=== PATIENT | female | born 1975 | race Caucasian/White ===

== ENCOUNTER 2017-02-10 11:14 | Outpatient (CLI) | payer SELFPAY ==
--- NOTE | 2017-02-10 12:06 | Non Stress Test Report ---
Non Stress Test Datetime Report Generated by CPN: 02/10/2017 12:06 DEMOGRAPHIC EGA NST: 36.3 INDICATION Indication for Study: Ordered by Provider Indication for Study (NST) Other: AMA VITAL SIGNS Temperature - NST: 97.9 Pulse - NST: 102 RESP - NST: 18 NBPSYS NST: 102 NBPDIA NST: 58 MONITORING Monitor Explained: Monitor Explained; Test Explained; Patient Verbalized Understanding Time on Monitor: 02/10/2017 11:31 Time off Monitor: 02/10/2017 11:56 NST Duration: 25 NST INTERVENTIONS NST Interventions: PO Hydration; Reposition Patient; Oxytocin Challenge Test Physician Notified NST: Adrian, P BABY A: [id number] BABY A Movement : Present Contraction Frequency : denies FHR Baseline : 135 Accelerations : 15X15 Decelerations : None Variability : Moderate 6-25bpm NST Review: Meets Criteria for Reactive NST NST Review and Verified By : Adela Clinton RNC NST Results: Reactive NST REPORT Report Trigger: Send Report
== END 2017-02-10 11:56 | disposition home or self-care (01) ==
LOC: LC 11:14
PROVIDERS: ATTEND Obstetrics & Gynecology
PROC: 4A1HXCZ Monitoring of Products of Conception, Cardiac Rate, External Approach (ICD-10-PCS; principal; 2017-02-10)
DX: O09.523 Supervision of elderly multigravida, third trimester (principal); Z3A.37 37 weeks gestation of pregnancy
CPT/HCPCS: 59025

== ENCOUNTER 2017-02-13 16:09 | Outpatient (CLI) | payer MEDICAID ==
--- NOTE | 2017-02-13 17:00 | Non Stress Test Report ---
Non Stress Test Datetime Report Generated by CPN: 02/13/2017 17:00 DEMOGRAPHIC EGA NST: 36.6 INDICATION Indication for Study: Polyhydramnios (Annotations: Data stored by CPN on behalf of user) Indication for Study: Ordered by Provider Indication for Study (NST) Other: Repeat NST MONITORING Monitor Explained: Monitor Explained; Test Explained; Patient Verbalized Understanding Time on Monitor: 02/13/2017 16:28 Time off Monitor: 02/13/2017 16:58 NST Duration: 30 NST INTERVENTIONS NST Interventions: PO Hydration Physician Notified NST: H. Butch CNM BABY A Movement : Present Contraction Frequency : Irregular FHR Baseline : 140 Accelerations : 15X15 Decelerations : None Variability : Moderate 6-25bpm NST Review: Meets Criteria for Reactive NST NST Review and Verified By : V Monk RN NST Results: Reactive NST REPORT Report Trigger: Send Report
== END 2017-02-13 17:03 | disposition home or self-care (01) ==
LOC: LC 16:09
PROVIDERS: ATTEND Obstetrics & Gynecology
PROC: 4A1HXCZ Monitoring of Products of Conception, Cardiac Rate, External Approach (ICD-10-PCS; principal; 2017-02-13)
DX: O40.3XX0 Polyhydramnios, third trimester, not applicable or unspecified (principal); O09.523 Supervision of elderly multigravida, third trimester; Z3A.36 36 weeks gestation of pregnancy
CPT/HCPCS: 59025

== ENCOUNTER 2018-02-23 22:34 | Emergency (ER) | payer MEDICAID ==
--- NOTE | 2018-02-23 23:22 | ER Document Report ---
ED GI/ - General Chief Complaint: Abdominal Pain Stated Complaint: KIDNEY INFECTION Time Seen by Provider: 02/23/18 23:18 Mode of Arrival: Ambulatory Information source: Patient TRAVEL OUTSIDE OF THE [place] IN LAST 30 DAYS: No - HPI Patient complains to provider of: Abdominal pain, Flank pain, Hematuria, Onset: Last week Timing/Duration: Gradual Quality of pain: Achy Associated symptoms: Dysuria, Nausea Exacerbated by: Denies Relieved by: Denies Similar symptoms previously: No Recently seen / treated by doctor: No Notes: 02/23/18 23:20 Patient is a 42-year-old female who is , presenting to the emergency room today complaining of flank pain with hematuria and chills, she reports that she had a positive test back in October after missing a menstrual cycle, however a few weeks after that developed heavy vaginal bleeding with cramping and passage of large clots and believed that she possibly had a miscarriage, she reports abdominal bloating, swelling in her hands and nausea at times 02/24/18 02:15 - Related Data Allergies/Adverse Reactions: bupropion [From Wellbutrin] Allergy (Verified 02/16/17 03:05) Past Medical History - General Information source: Patient - Social History Smoking Status: Current Every Day Smoker Family History: Reviewed & Not Pertinent - Past Medical History Cardiac Medical History: Denies: Hx Coronary Artery Disease Pulmonary Medical History: Reports: Hx Asthma, Hx COPD Neurological Medical History: Reports: Hx Seizures GI Medical History: Reports: Hx Hepatitis - Hepatitis C Infectious Medical History: Reports: Hx Hepatitis - Hepatitis C Review of Systems - Review of Systems Constitutional: No symptoms reported EENT: No symptoms reported Cardiovascular: No symptoms reported Respiratory: No symptoms reported Gastrointestinal: See HPI Genitourinary: See HPI Female Genitourinary: See HPI Musculoskeletal: No symptoms reported Skin: No symptoms reported Hematologic/Lymphatic: No symptoms reported Neurological/Psychological: No symptoms reported -: Yes All other systems reviewed and negative Physical Exam - Vital signs Vitals: Temp Pulse Resp BP Pulse Ox 98.0 F 105 H 16 110/50 L 100 02/24/18 00:31 02/24/18 00:31 02/24/18 00:31 02/24/18 00:31 02/24/18 00:31 Interpretation: Normal - General General appearance: Appears well, Alert - HEENT Head: Normocephalic, Atraumatic Eyes: Normal Pupils: PERRL - Respiratory Respiratory status: No respiratory distress Chest status: Nontender Breath sounds: Normal Chest palpation: Normal - Cardiovascular Rhythm: Regular Heart sounds: Normal auscultation Murmur: No - Abdominal Inspection: Gravid female Distension: No distension Bowel sounds: Normal Tenderness: Nontender Organomegaly: No organomegaly - Back Back: Normal, Nontender - Extremities General upper extremity: Normal inspection, Nontender, Normal color, Normal ROM , Normal temperature General lower extremity: Normal inspection, Nontender, Normal color, Normal ROM , Normal temperature, Normal weight bearing. No: Moises's sign - Neurological Neuro grossly intact: Yes Cognition: Normal Orientation: AAOx4 Tammie Coma Scale Eye Opening: Spontaneous [place] Coma Scale Verbal: Oriented [place] Coma Scale Motor: Obeys Commands Tammie Coma Scale Total: 15 Speech: Normal Motor strength normal: LUE, RUE, LLE, RLE Sensory: Normal - Psychological Associated symptoms: Normal affect, Normal mood - Skin Skin Temperature: Warm Skin Moisture: Dry Skin Color: Normal Course - Re-evaluation Re-evalutation: 02/23/18 23:21 Bedside ultrasound in triage area confirms positive IUP with heart rate and motion 02/24/18 05:58 Lab and imaging findings discussed with patient at bedside which is consistent with a positive IUP measuring 18 weeks and 1 day, with good heart rate, she also has evidence of urinary tract infection, patient was started on antibiotics and advised to follow-up with MANAGER STYLE - Vital Signs Vital signs: Temp Pulse Resp BP Pulse Ox 98.0 F 105 H 16 110/50 L 100 02/24/18 00:31 02/24/18 00:31 02/24/18 00:31 02/24/18 00:31 02/24/18 00:31 - Laboratory Result Diagrams: 02/23/18 23:47 02/23/18 23:47 Laboratory results interpreted by me: 02/23/18 02/23/18 02/23/18 23:33 23:33 23:47 WBC 14.5 H RBC 3.18 L Hgb 9.0 L Hct 26.6 L RDW 15.2 H Plt Count 147 L Seg Neutrophils % 87.0 H Lymphocytes % 5.2 L Absolute Neutrophils 12.7 H Chloride Carbon Dioxide Alkaline Phosphatase Total Protein Albumin Beta HCG, Quant Urine Protein 100 H Urine Blood MODERATE H Urine Nitrite POSITIVE H Urine Urobilinogen 4.0 H Ur Leukocyte Esterase SMALL H Protein/Creatinin Ratio 0.7 H Urine Total Protein 67.2 H 02/23/18 23:47 WBC RBC Hgb Hct RDW Plt Count Seg Neutrophils % Lymphocytes % Absolute Neutrophils Chloride 109 H Carbon Dioxide 20 L Alkaline Phosphatase 128 H Total Protein 5.7 L Albumin 2.9 L Beta HCG, Quant 5923.10 H Urine Protein Urine Blood Urine Nitrite Urine Urobilinogen Ur Leukocyte Esterase Protein/Creatinin Ratio Urine Total Protein - Diagnostic Test Radiology reviewed: Image reviewed, Reports reviewed Discharge - Discharge Clinical Impression: Urinary tract infection Qualifiers: Urinary tract infection type: site unspecified Hematuria presence: without hematuria Qualified Code(s): N39.0 - Urinary tract infection, site not specified Condition: Stable Disposition: HOME, SELF-CARE Instructions: Nitrofurantoin ([facility]), ([facility]), Urinary Tract Infection ( [facility]) Additional Instructions: Follow up with your primary care provider and MANAGER STYLE in one to 2 days. Return to the emergency room immediately if symptoms worsen or any additional concerns. Prescriptions: Nitrofurantoin/Nitrofuran Mac [Macrobid 100 mg Capsule] 100 mg PO BID #20 capsule Forms: Smoking Cessation Education Referrals: LUCY CASTILLO MD [ACTIVE STAFF] - Follow up as needed
[2018-02-24 00:09] LABS: ABSOLUTE EOSINOPHILS # (AUTO) 0.1 10^3/uL (0.0-0.6); ABSOLUTE LYMPHOCYTES (AUTO) 0.8 10^3/uL (0.5-4.7); ABSOLUTE NEUT (AUTO) 12.7 10^3/uL (1.7-8.2); BASOPHILS % (AUTO) 0.3 % (0-2); EOSINOPHILS % (AUTO) 0.7 % (0-6); HEMATOCRIT 26.6 % (36.0-47.0); LYMPHOCYTES % (AUTO) 5.2 % (13-45); MEAN CORPUSCULAR HEMOGLOBIN 28.4 pg (27.0-33.4); MEAN CORPUSCULAR HGB CONC 33.9 g/dL (32.0-36.0); MEAN CORPUSCULAR VOLUME 84 fl (80-97); MONOCYTES % (AUTO) 6.8 % (3-13); PLATELET COUNT 147 10^3/uL (150-450); RED BLOOD COUNT 3.18 10^6/uL (3.72-5.28); RED CELL DISTRIBUTION WIDTH 15.2 % (11.5-14.0); TOTAL CELLS COUNTED % (AUTO) 100 %; WHITE BLOOD COUNT 14.5 10^3/uL (4.0-10.5)
[2018-02-24 00:35] LABS: APPEARANCE,URINE CLEAR; BILIRUBIN,URINE NEGATIVE (NEGATIVE); COLOR,URINE YELLOW; GLUCOSE, URINE NEGATIVE (NEGATIVE); KETONES,URINE NEGATIVE (NEGATIVE); LEUKOCYTE ESTERASE,URINE SMALL (NEGATIVE); NITRITE,URINE POSITIVE (NEGATIVE); PROTEIN,URINE 100 mg/dL (NEGATIVE); URINE SPECIFIC GRAVITY 1.018
[2018-02-24 00:57] LABS: ALANINE AMINOTRANSFERASE 31 U/L (9-52); ALBUMIN 2.9 g/dL (3.5-5.0); ALKALINE PHOSPHATASE 128 U/L (38-126); ANION GAP 9 (5-19); ASPARTATE AMINO TRANSFERASE 19 U/L (14-36); BILIRUBIN,DIRECT 0.3 mg/dL (0.0-0.4); BILIRUBIN,TOTAL 0.5 mg/dL (0.2-1.3); BLOOD UREA NITROGEN 16 mg/dL (7-20); CALCIUM 8.8 mg/dL (8.4-10.2); CARBON DIOXIDE 20 mmol/L (22-30); CHLORIDE 109 mmol/L (98-107); GLUCOSE 80 mg/dL (75-110); POTASSIUM 4.2 mmol/L (3.6-5.0); SODIUM 137.6 mmol/L (137-145); TOTAL PROTEIN 5.7 g/dL (6.3-8.2); URIC ACID 4.9 mg/dL (2.5-7.0)
[2018-02-24 01:10] LABS: UR PRO/CREAT RATIO RESULT 0.7 mg/mg (0.0-0.2); URINE CREATININE 95.8 mg/dL (15-278); URINE PROTEIN 67.2 mg/dL (<12)
[2018-02-24 01:38] VITALS: BP 110/50
[2018-02-24] MEDS ORDERED: HYDROCODONE/ACETAMINOPHEN 5-325 MG TABLET PO ONE (01:58)
[2018-02-24] MEDS ORDERED: NITROFURANTOIN MONOHYD/M-CRYST 100 MG CAPSULE PO ONE (01:58)
--- NOTE | 2018-02-24 02:44 | RADIOLOGY REPORT (SQ) ---
EXAM DESCRIPTION: US FOLLOW UP COMPLETED DATE/TME: 02/23/2018 23:19 CLINICAL HISTORY: 42 years, Female, /CRAMPING LMP not provided. COMPARISON: None. TECHNIQUE: Complete second trimester obstetrical ultrasound. FINDINGS: Cervical length: 5.9 cm. measurements: BPD: 4.01 cm compatible with an estimated gestational age of 18 weeks, 1 day. HC: 14.83 cm compatible with an estimated gestational age of 18 weeks, 0 day. AC: 13.96 cm compatible with an estimated gestational age of 19 weeks, 2 day. FL: 2.36 cm compatible with an estimated gestational age of 17 weeks, 1 day. Composite estimated gestational age of 18 weeks, 1 day. Estimated delivery date of 07/27/2018. Estimated weight of 231 g. heart rate of 168 bpm. Placenta: Posterior with marginal previa. presentation: Variable LVP: 5.0 cm. organ survey: Four-chamber heart: Visualized Three-vessel Cord: Visualized Cord insertion: No abnormality identified. Kidneys: Not well visualized. Bladder: No abnormality identified. Stomach: No abnormality defined. Spine: No abnormality identified. Cine loop of the cervical spine was not performed. The entire spine is not definitely visualized. Lateral ventricles: No abnormality identified. Cerebellum: No abnormality identified. Cisterna magna: No abnormalities identified. Upper extremity: No abnormality identified. Lower extremity: No abnormality identified. IMPRESSION: 1. Single live intrauterine with estimated gestational age of 18 weeks, 1 days. heart rate of 168 bpm. 2. Posterior placenta with marginal previa. Continued follow-up recommended. 3. No definite abnormalities noted on organ survey. The kidneys and spine are not well visualized. Continued follow-up recommended. 2010 [employer]- All Rights Reserved
[2018-02-24] MEDS ORDERED: HYDROCODONE/ACETAMINOPHEN 5-325 MG (6 TAB/ER DISP) PO PRN (02:56)
== END 2018-02-24 03:08 | disposition home or self-care (01) ==
LOC: ER 22:34
DX: O23.42 Unspecified infection of urinary tract in pregnancy, second trimester (principal); O26.892 Other specified pregnancy related conditions, second trimester; R31.9 Hematuria, unspecified; R10.9 Unspecified abdominal pain; R68.83 Chills (without fever); R11.0 Nausea; O99.332 Smoking (tobacco) complicating pregnancy, second trimester; O99.512 Diseases of the respiratory system complicating pregnancy, second trimester; J44.9 Chronic obstructive pulmonary disease, unspecified; Z3A.18 18 weeks gestation of pregnancy; Z88.8 Allergy status to other drugs, medicaments and biological substances
CPT/HCPCS: 99284; 86900; 86901; 36415; 86850; 84702; 84156; 84550; 82570; 85025; 80053; 81001; 76805; J2790; J3490; J8499

== ENCOUNTER 2018-04-13 17:44 | Outpatient (CLI) | payer MEDICAID, OTHER ==
[2018-04-13 17:59] VITALS: BP 102/60
[2018-04-13 19:09] LABS: T.VAGINALIS (WET MOUNT) NO TRICHOMONAS SEEN
[2018-04-13 19:10] LABS: BACTERIA (WET MOUNT) 4+ BACTERIA SEEN; EPITHELIALS (WET MOUNT) 3+ EPITHELIALS SEEN; RBCS (WET MOUNT) RARE RBCS SEEN; WBCS (WET MOUNT) 4+ WBCS SEEN; YEAST (WET MOUNT) YEAST SEEN
[2018-04-13] MEDS ORDERED: FLUCONAZOLE 100 MG TABLET PO ONE (20:00)
[2018-04-13 20:35] LABS: CHLAM PCR NOT DETECTED (NOT DETECT); GON PCR DETECTED (NOT DETECT)
[2018-04-13] MEDS ORDERED: CEFTRIAXONE INJ 1000 MG VIAL ONE (20:55)
[2018-04-13] MEDS ORDERED: AZITHROMYCIN 250 MG TABLET ONE (20:55)
[2018-04-13] MEDS ORDERED: LIDOCAINE 1% INJ-PF (10 MG/ML) 30 ML SDV ONE (20:56)
[2018-04-13] MEDS ORDERED: ONDANSETRON 4 MG TAB.RAPDIS ONE (20:56)
[2018-04-13] MEDS ORDERED: LIDOCAINE 1% INJ-PF (10 MG/ML) 30 ML SDV INJ ONE (20:58)
[2018-04-13] MEDS ORDERED: AZITHROMYCIN 250 MG TABLET PO ONE (20:58)
[2018-04-13] MEDS ORDERED: ONDANSETRON 4 MG TAB.RAPDIS PO ONE (20:58)
[2018-04-13] MEDS ORDERED: CEFTRIAXONE INJ 250 MG VIAL IM ONE (20:58)
== END 2018-04-13 21:54 | disposition home or self-care (01) ==
LOC: EDSTATUS 18:15 → LC 18:16
PROVIDERS: ATTEND Obstetrics & Gynecology
PROC: 4A1HXCZ Monitoring of Products of Conception, Cardiac Rate, External Approach (ICD-10-PCS; principal; 2018-04-13)
DX: O09.522 Supervision of elderly multigravida, second trimester (principal); O09.32 Supervision of pregnancy with insufficient antenatal care, second trimester; O99.332 Smoking (tobacco) complicating pregnancy, second trimester; F17.210 Nicotine dependence, cigarettes, uncomplicated; O98.212 Gonorrhea complicating pregnancy, second trimester; Z3A.25 25 weeks gestation of pregnancy
CPT/HCPCS: 59899; 87210; 87491; 87591; Q0114; S0119; J3490; J0696

== ENCOUNTER 2018-04-21 08:37 | Inpatient (IN) | payer MEDICAID ==
--- NOTE | 2018-04-21 08:55 | ER Document Report ---
ED GI/ - General Stated Complaint: PREMATURE DELIVERY Time Seen by Provider: 04/21/18 08:48 Mode of Arrival: Medic Information source: Patient TRAVEL OUTSIDE OF THE [place] IN LAST 30 DAYS: No - HPI Patient complains to provider of: Other - This is a woman who is 42 years old G 14 P8 that presents for evaluation of a spontaneous vaginal delivery of a stillborn 25-week . She noted that she began to have some cramping last night this morning had the sensation of a gush went to the bathroom saw that the foot was presenting from her vagina at which time she began to pass large volume of blood, fire department was then called subsequently delivered the baby which did not demonstrate any signs of life, they clamped the baby's umbilical cord in place, the placenta was not delivered thereafter. Subsequent she was transported the emergency room. She denies any history of vaginal bleeding problems, any bleeding problems, had previously been diagnosed with gonorrhea approximately 1 week prior and had been receiving treatment therefore. - Related Data Allergies/Adverse Reactions: bupropion [From Wellbutrin] Allergy (Verified 04/13/18 17:45) Past Medical History - General Information source: Patient, Emergency Med Personnel - Social History Smoking Status: Current Every Day Smoker Smoking Education Provided: Yes Family History: Reviewed & Not Pertinent - Past Medical History Cardiac Medical History: Denies: Hx Coronary Artery Disease Pulmonary Medical History: Reports: Hx Asthma, Hx COPD Neurological Medical History: Reports: Hx Seizures Renal/ Medical History: Denies: Hx Peritoneal Dialysis GI Medical History: Reports: Hx Hepatitis - Hepatitis C Infectious Medical History: Reports: Hx Hepatitis - Hepatitis C Review of Systems - Review of Systems -: Yes All other systems reviewed and negative Physical Exam - Vital signs Vitals: Temp Pulse BP Pulse Ox 98.4 F 106 H 124/64 100 04/21/18 08:53 04/21/18 08:53 04/21/18 08:53 04/21/18 08:53 - General General appearance: Appears well, Alert, Anxious In distress: None - HEENT Head: Normocephalic, Atraumatic Eyes: Normal Pupils: PERRL - Respiratory Respiratory status: No respiratory distress Chest status: Nontender Breath sounds: Normal Chest palpation: Normal - Cardiovascular Rhythm: Regular Heart sounds: Normal auscultation Murmur: No - Abdominal Inspection: Other - Obese abdomen, firm fundus of the uterus - Genitourinary External exam: Other - There is a clamped umbilical cord approximately 30 cm in the length, tethered what appears to be intrauterine. Vaginal bleeding: Mild - Back Back: Normal, Nontender - Extremities General upper extremity: Normal inspection, Nontender, Normal color, Normal ROM , Normal temperature General lower extremity: Normal inspection, Nontender, Normal color, Normal ROM , Normal temperature, Normal weight bearing. No: Moises's sign - Neurological Neuro grossly intact: Yes Cognition: Normal Orientation: AAOx4 [place] Coma Scale Eye Opening: Spontaneous [place] Coma Scale Verbal: Oriented Tammie Coma Scale Motor: Obeys Commands [place] Coma Scale Total: 15 Speech: Normal Motor strength normal: LUE, RUE, LLE, RLE Sensory: Normal - Psychological Associated symptoms: Normal affect, Normal mood Course - Re-evaluation Re-evalutation: 04/21/18 09:02 42-year-old female who presents after a stillbirth. She is 25 weeks . She has a placenta which is still in place with a clamp umbilical cord. Applied gentle fundal massage. Gentle inferior traction on umbilical cord. Patient's placenta failed to be delivered. It is approximately 1 hour status post her delivery. Have contacted on-call supply planner Dr. Zarate who agrees to see patient on labor and delivery. We will plan for monitoring and admission to labor and delivery for further management. We will defer any further manipulation of the placenta and umbilical cord. - Vital Signs Vital signs: Temp Pulse Resp BP Pulse Ox 98.4 F 106 H 124/64 100 04/21/18 08:53 04/21/18 08:53 04/21/18 08:53 04/21/18 08:53 Discharge - Discharge Clinical Impression: Advanced maternal age (AMA), 40 years or greater, Miscarriage, Condition: Stable Disposition: ADMITTED INPATIENT Admitting Provider: [facility] Unit Admitted: Labor and Delivery Referrals: MAYRA STATON MD [Primary Care Provider] - Follow up as needed
[2018-04-21] MEDS ORDERED: MISOPROSTOL 0.2 MG TABLET PR ONE (08:56)
[2018-04-21] MEDS ORDERED: RINGERS SOLUTION,LACTATED 1,000 ML IV PRN (08:57)
[2018-04-21] MEDS ORDERED: RINGERS SOLUTION,LACTATED 1,000 ML IV ONE (08:57)
[2018-04-21 09:23] LABS: ABSOLUTE EOSINOPHILS # (AUTO) 0.1 10^3/uL (0.0-0.6); ABSOLUTE LYMPHOCYTES (AUTO) 1.6 10^3/uL (0.5-4.7); ABSOLUTE MONOCYTES (AUTO) 0.7 10^3/uL (0.1-1.4); BASOPHILS % (AUTO) 0.2 % (0-2); EOSINOPHILS % (AUTO) 0.5 % (0-6); HEMATOCRIT 28.4 % (36.0-47.0); HEMOGLOBIN 9.9 g/dL (12.0-15.5); LYMPHOCYTES % (AUTO) 11.8 % (13-45); MEAN CORPUSCULAR HEMOGLOBIN 29.7 pg (27.0-33.4); MEAN CORPUSCULAR HGB CONC 34.9 g/dL (32.0-36.0); MEAN CORPUSCULAR VOLUME 85 fl (80-97); MONOCYTES % (AUTO) 5.4 % (3-13); PLATELET COUNT 196 10^3/uL (150-450); RED BLOOD COUNT 3.34 10^6/uL (3.72-5.28); RED CELL DISTRIBUTION WIDTH 14.8 % (11.5-14.0); SEGMENTED NEUTROPHILS % (AUTO) 82.1 % (42-78); TOTAL CELLS COUNTED % (AUTO) 100 %; WHITE BLOOD COUNT 13.4 10^3/uL (4.0-10.5)
[2018-04-21] MEDS ORDERED: MISOPROSTOL 0.2 MG TABLET ONE (09:51)
[2018-04-21] MEDS ORDERED: OXYTOCIN/NORMAL SALINE 20 UNIT/1,000 ML RTUINJ ONE (09:51)
[2018-04-21 11:08] LABS: URINE BARBITURATES SCREEN NEGATIVE; URINE BENZODIAZEPINES SCREEN NEGATIVE; URINE COCAINE SCREEN NEGATIVE; URINE MARIJUANA (THC) SCREEN NEGATIVE; URINE METHADONE SCREEN NEGATIVE; URINE PHENCYCLIDINE SCREEN NEGATIVE
[2018-04-21] MEDS ORDERED: FENTANYL CITRATE INJ/PF 100 MCG/2 ML AMPUL ONE (11:13)
[2018-04-21 11:18] LABS: URINE AMPHETAMINES SCREEN UNCONFIRMED POSITIVE
[2018-04-21] MEDS ORDERED: BENZOCAINE/MENTHOL AEROSOL SPRAY 56 ML TOP PRN (11:29)
[2018-04-21] MEDS ORDERED: DIBUCAINE 1% OINTMENT 28 GM TP PRN (11:29)
[2018-04-21] MEDS ORDERED: ZOLPIDEM TARTRATE 5 MG TABLET PO PRN (11:29)
[2018-04-21] MEDS ORDERED: PROMETHAZINE HCL INJ 25 MG/1 ML VIAL IV PRN (11:29)
[2018-04-21] MEDS ORDERED: OXYTOCIN/NORMAL SALINE 20 UNIT/1,000 ML RTUINJ IV PRN (11:29)
[2018-04-21] MEDS ORDERED: GLYCERIN/WITCH HAZEL LEAF 1 EACH MED..PAD TP PRN (11:29)
[2018-04-21] MEDS ORDERED: PROMETHAZINE HCL 25 MG SUPP.RECT PR PRN (11:29)
[2018-04-21] MEDS ORDERED: DIPHENHYDRAMINE HCL 25 MG CAPSULE PO PRN (11:29)
[2018-04-21] MEDS ORDERED: MEASLES,MUMPS&RUBELLA VACC/PF 0.5 ML VIAL SUBCUT PRN (11:29)
[2018-04-21] MEDS ORDERED: ACETAMINOPHEN 650 MG SUPP.RECT PR PRN (11:29)
[2018-04-21] MEDS ORDERED: MAGNESIUM HYDROXIDE SUSP 30 ML UDCUP PO PRN (11:29)
[2018-04-21] MEDS ORDERED: PROMETHAZINE HCL 25 MG TABLET PO PRN (11:29)
[2018-04-21] MEDS ORDERED: DIPH/PERTUSS(ACELL)/TETANUS VAC/PF 0.5 ML SYR (>=10YO) IM PRN (11:29)
[2018-04-21] MEDS ORDERED: ACETAMINOPHEN WITH CODEINE #3 TABLET PO PRN ×2 (11:29)
[2018-04-21] MEDS ORDERED: NA PHOS,M-B/NA PHOS,DI-BA (ADULT) 133 ML ENEMA PR PRN (11:29)
[2018-04-21] MEDS ORDERED: FENTANYL CITRATE INJ/PF 100 MCG/2 ML AMPUL IV ONE (12:15)
[2018-04-21] MEDS ORDERED: CEFAZOLIN 2 GM/D5W RTU 2 GM/50 ML RTUPB IV ONE (12:30)
[2018-04-21] MEDS: CEFAZOLIN 2 GM/D5W RTU 2 GM/50 ML RTUPB IV SCH ×2 (12:30→18:09)
[2018-04-21 13:37] LABS: RUBELLA INTERPRETATION POSITIVE
--- NOTE | 2018-04-21 14:34 | Admission Physical ---
Datetime Report Generated by CPN: 04/21/2018 14:34 CURRENT ADMISSION Chief Complaint: Other Chief Complaint Other: Brought in by EMS for delivery of infant at hotel Indication for Induction: Not Applicable Admit Impression : Observation/Evaluation; Obstetrical Complication Admit Plan: Admit to Unit ALLERGIES Medication Allergies: Yes Medication Allergies: bupropion (04/21/2018) Latex: No Latex Allergies OBSTETRICAL HISTORY EDC: 07/27/2018 00:00 : 14 Para: 8 Ectopic: 0 Livin Cesareans: 0 VBACs: 0 Multiple Births: 0 Gestational Diabetes: No Rh Sensitization: No DANIEL: No Infertility: No ART Treatment: No Uterine Anomaly: No IUGR: No Hx Previous C/S: No Macrosomia: No Hx Loss/Stillborn: Yes PIH: No Hx : No Placenta Previa/Abruption: No Depression/PP Depression: Yes PTL/PROM: Yes Post Hemorrhage: Yes Current Procedures: Ultrasound; NST SEE RECORDS Alcohol: No Marijuana : No Cocaine: No Other Illicit Drugs: No Cigarettes: Current Everyday Smoker. [id number] MEDICAL HISTORY Diabetes: No Blood Transfusion: Yes Pulmonary Disease (Asthma, TB): Yes Breast Disease: No Hypertension: No Account Manager Education Surgery: No Heart Disease: No Hosp/Surgery: Yes Autoimmune Disorder: No Anesthetic Complications: No Kidney Disease: No Abnormal Pap Smear: No Neuro/Epilepsy: Yes Psychiatric Disorders: No Other Medical Diseases: No Hepatitis/Liver Disease: No Significant Family History: No Varicosities/Phlebitis: No Trauma/Violence : No Thyroid Dysfunction: No Medical History Comments: COPD, epilepsy, arthritis- no meds INFECTIOUS HISTORY Gonorrhea: Yes Genital Herpes: No Chlamydia: No Tuberculosis: No Syphilis: No Hepatitis: Yes HIV/AIDS Exposure: No Rash or Viral Illness: No HPV: No Infectious History Comments: Hep C + PHYSICAL EXAM General: Normal HEENT: Normal Neurologic: Normal Thyroid: Deferred Heart: Normal Lungs: Normal Breast: Deferred Back: Normal Abdomen: Normal Genitourinary Exam: Normal Extremities: Normal DTRs: Normal Pelvic Type: Adequate Vital Signs: Reviewed FETUS A EGA: 26.1 Admit Comment: 42yo now at 26+1ega presents after delivery of at [facility] by EMS. Reportedly she noted cramping (she thought were darryl-junior) this am then noted feet from her vagina. EMS was called and Fire and EMS delivered apparent footling breech delivery. Per report no signs of life at but unknown length of entrapment. Upon arrival to the ER the cord was clamped but not easily delivered and patient was brought to Labor and delivery. 1000mcg cytotec placed per rectum. UDS obtained via straight catheter. After approximately 1 hour post cytotec placement the placenta was easily delivered - was noted to be thick and not truly consistent with reported 26wks ega per US at 18wks with LILIYA of 07/27/2018. Pt does not desire autopsy. Placenta sent for pathology and cultures obtained of placenta. Treated for Gonorrhea last week. crudee noted no e/o ratianed placenta and placenta appeared intact at delivery. Ancef for 24 hours and will monitor bleeding. T_C. If needed will perform a D_C but bleeding is stable now. PLANS FOR LABOR AND DELIVERY Labor and Delivery: None Pain Management: None INFORMED CONSENT Informed Consent Obtained: Risks, Benefits and Alternatives Discussed Signature: with User ID: [email or web address]
[2018-04-21] MEDS ORDERED: IBUPROFEN 800 MG TABLET ONE (14:45)
[2018-04-21] MEDS: IBUPROFEN 800 MG TABLET PO SCH ×2 (14:46→21:53)
[2018-04-21 14:48] LABS: CHLAM PCR NOT DETECTED (NOT DETECT); GON PCR DETECTED (NOT DETECT)
[2018-04-21] MEDS ORDERED: AZITHROMYCIN 1 GM SUSP PACKET PO ONE (14:58)
[2018-04-21] MEDS ORDERED: AZITHROMYCIN 250 MG TABLET ONE (15:06)
[2018-04-21] MEDS ORDERED: CEFTRIAXONE INJ 1000 MG VIAL IV ONE ×2 (15:15→17:00)
[2018-04-21] MEDS ORDERED: CEFTRIAXONE INJ 1000 MG VIAL ONE (17:18)
[2018-04-21] MEDS: FERROUS SULFATE 325 MG TABLET PO SCH (18:08)
[2018-04-21] MEDS ORDERED: CEFTRIAXONE SODIUM 500 MG in NORMAL SALINE 25 ML IV ONE (18:30)
[2018-04-21] MEDS ORDERED: CEFTRIAXONE SODIUM 500 MG in DEXTROSE 5%-WATER 50 ML IV ONE (18:30)
[2018-04-21] MEDS: DOCUSATE SODIUM 100 MG CAPSULE PO SCH (18:46)
[2018-04-21] MEDS: PSEUDOEPHEDRINE HCL 30 MG TABLET PO PRN (20:15)
[2018-04-21] MEDS: FAMOTIDINE 20 MG TABLET PO SCH (21:52)
[2018-04-22] MEDS: CEFAZOLIN 2 GM/D5W RTU 2 GM/50 ML RTUPB IV SCH ×3 (00:33→12:40)
[2018-04-22] MEDS: PSEUDOEPHEDRINE HCL 30 MG TABLET PO PRN (03:09)
[2018-04-22] MEDS: IBUPROFEN 800 MG TABLET PO SCH ×2 (05:48→14:32)
[2018-04-22 07:57] LABS: HEMATOCRIT 24.2 % (36.0-47.0); HEMOGLOBIN 8.4 g/dL (12.0-15.5); MEAN CORPUSCULAR HEMOGLOBIN 29.9 pg (27.0-33.4); MEAN CORPUSCULAR HGB CONC 34.9 g/dL (32.0-36.0); MEAN CORPUSCULAR VOLUME 86 fl (80-97); PLATELET COUNT 227 10^3/uL (150-450); RED BLOOD COUNT 2.82 10^6/uL (3.72-5.28); WHITE BLOOD COUNT 6.6 10^3/uL (4.0-10.5)
[2018-04-22] MEDS: FERROUS SULFATE 325 MG TABLET PO SCH (09:07)
[2018-04-22] MEDS ORDERED: SENNOSIDES/DOCUSATE 8.6-50 MG 1 EACH TABLET PO SCH (10:00)
[2018-04-22] MEDS ORDERED: PRENATAL VITAMIN W DHA CAPSULE PO SCH (10:00)
[2018-04-22] MEDS: DOCUSATE SODIUM 100 MG CAPSULE PO SCH (10:30)
[2018-04-22] MEDS: FAMOTIDINE 20 MG TABLET PO SCH (10:30)
--- NOTE | 2018-04-22 11:32 | PDOC PROGRESS REPORT ---
Subjective-OB Progress Note for:: 04/22/18 Subjective: Pt doing well now, denies heavy bleeding. Voiding without difficulty. No concerns. Does not desire another , she is undecided on BTL. Seems emotionally stable, reports this was an unplanned and that she had considered termination or adoption, but then this happened. She is ready and wants to go home today. Physical Exam (OB) Vital Signs: Temp Pulse Resp BP Pulse Ox 98.2 F 81 16 98/47 L 96 04/22/18 08:22 04/22/18 08:22 04/22/18 08:22 04/22/18 08:22 04/22/18 08:22 Intake & Output 04/21/18 04/22/18 04/23/18 06:59 06:59 06:59 Intake Total 535 Balance 535 - Lochia Lochia Amount: Small 10-25 ml Lochia Color: Rubra/Red - Abdomen Description: Tender, Soft, Round Hernia Present: No Fundal Description: Firm, Midline Fundal Height: u/u - u/2 Objective-Diagnostic Laboratory: 04/22/18 07:35 04/22/18 04/22/18 07:35 07:35 WBC 6.6 RBC 2.82 L Hgb 8.4 L Hct 24.2 L MCV 86 MCH 29.9 MCHC 34.9 RDW 15.0 H Plt Count 227 Blood Type O NEGATIVE Assessment and Plan(PN) - Assessment and Plan (1) Advanced maternal age (AMA), 40 years or greater Is this a current diagnosis for this admission?: Yes (2) Gonorrhea affecting Qualifiers: Trimester: second trimester Qualified Code(s): O98.212 - Gonorrhea complicating , second trimester Is this a current diagnosis for this admission?: Yes (3) No care in current Qualifiers: Trimester: second trimester Qualified Code(s): O09.32 - Supervision of with insufficient care, second trimester Is this a current diagnosis for this admission?: Yes (4) delivery, delivered Is this a current diagnosis for this admission?: Yes (5) Hepatitis C antibody positive in blood Is this a current diagnosis for this admission?: Yes - Time Spent with Patient Time with patient: Less than 15 minutes Medications reviewed and adjusted accordingly: Yes - Disposition Anticipated Discharge: Home Within: within 24 hours
--- NOTE | 2018-04-22 11:33 | PDOC DISCHARGE SUMMARY ---
Final Diagnosis Discharge Date: 04/22/18 - Final Diagnosis (1) Advanced maternal age (AMA), 40 years or greater Is this a current diagnosis for this admission?: Yes (2) Gonorrhea affecting Is this a current diagnosis for this admission?: Yes (3) No care in current Is this a current diagnosis for this admission?: Yes (4) delivery, delivered Is this a current diagnosis for this admission?: Yes (5) Hepatitis C antibody positive in blood Is this a current diagnosis for this admission?: Yes Discharge Data - Discharge Medication Home Medications: Hydrocodone Bit/Acetaminophen [Hydrocodon-Acetaminophen 5-325] 1 each PO PRN PRN 04/21/18 Pseudoephedrine HCl [Sudafed] 30 mg PO PRN PRN 04/21/18 Reason(s) for Admission: PROM, Labor Procedures: None Intrapartum Procedure(s): Spontaneous Vaginal Delivery - Diagnosis Test Laboratory: Temp Pulse Resp BP Pulse Ox 98.2 F 81 16 98/47 L 96 04/22/18 08:22 04/22/18 08:22 04/22/18 08:22 04/22/18 08:22 04/22/18 08:22 04/21/18 04/22/18 10:00 07:35 RBC 2.82 L Hgb 8.4 L Hct 24.2 L Urine Opiates Screen UNCONFIRMED POSITIVE - Discharge information/Instructions Discharge Activity: Activity As Tolerated, Pelvic Rest Discharge Diet: Regular Disposition: HOME, SELF-CARE [facility] in: 2, Weeks
[2018-04-22 11:40] LABS: HEPATITS B SURFACE ANTIGEN Negative (Negative)
[2018-04-22 13:37] VITALS: BP 110/58
[2018-04-25 15:36] LABS: HEPATITIS C QUANTITATION 1100000 IU/mL (.)
[2018-04-26 07:13] LABS: HEPATITIS C LOG10 6.041 (.)
[2018-04-27 08:09] LABS: AMPHETAMINE CONFIRMATION UR Negative ({null, Cutoff=500})
== END 2018-04-22 15:59 | disposition home or self-care (01) | DRG 779 ==
LOC: ER 08:37 → EH 09:11 → LR 09:45 → 2N 15:30
PROVIDERS: ADMIT Student in an Organized Health Care Education/Training Program; ATTEND Student in an Organized Health Care Education/Training Program
PROC: 10D17Z9 Manual Extraction of Products of Conception, Retained, Via Natural or Artificial Opening (ICD-10-PCS; principal; 2018-04-21)
DX: O03.4 Incomplete spontaneous abortion without complication (principal); O72.0 Third-stage hemorrhage; O98.212 Gonorrhea complicating pregnancy, second trimester; O99.335 Smoking (tobacco) complicating the puerperium; F17.210 Nicotine dependence, cigarettes, uncomplicated; Z88.8 Allergy status to other drugs, medicaments and biological substances
CPT/HCPCS: 36415; 80307; 80361; 85025; 85027; 85461; 86592; 86701; 86762; 86787; 86850; 86870; 86900; 86901; 87070; 87077; 87205; 87340; 87491; 87522; 87591; 88307; 99285; G0480; J0690; J0696; J2590; J2790; J3010; J3490; J7050

== ENCOUNTER 2018-05-09 07:42 | Emergency (ER) | payer MEDICAID ==
[2018-05-09] MEDS ORDERED: ONDANSETRON 4 MG TAB.RAPDIS ONE (07:46)
--- NOTE | 2018-05-09 07:58 | ER Document Report ---
ED Psych Disorder / Suicide - General Chief Complaint: Overdose Stated Complaint: POSSIBLE OVERDOSE Time Seen by Provider: 05/09/18 07:51 Notes: 42-year-old female comes in after heroin overdose. The patient stated that she used to do heroin a long time ago but has just recently restarted. She denies any suicidal or homicidal thoughts. Denies visual auditory hallucinations. States she had a stillborn baby on the 12th. She has been feeling depressed after that but denies any suicidal ideation. States she started shooting heroin again. She overdosed and that was brought in. She is wanting to go home but agrees to stay and be monitored for several hours. TRAVEL OUTSIDE OF THE [place] IN LAST 30 DAYS: No - Related Data Allergies/Adverse Reactions: bupropion [From Wellbutrin] Allergy (Verified 04/21/18 11:40) Past Medical History - Social History Smoking Status: Unknown if Ever Smoked Family History: Reviewed & Not Pertinent - Past Medical History Cardiac Medical History: Denies: Hx Coronary Artery Disease Pulmonary Medical History: Reports: Hx Asthma, Hx COPD Neurological Medical History: Reports: Hx Seizures Renal/ Medical History: Denies: Hx Peritoneal Dialysis GI Medical History: Reports: Hx Hepatitis - Hepatitis C Infectious Medical History: Reports: Hx Hepatitis - Hepatitis C Review of Systems - Review of Systems Constitutional: denies: Chills, Fever Cardiovascular: denies: Chest pain Respiratory: denies: Short of breath Gastrointestinal: Nausea, Vomiting. denies: Abdominal pain Female Genitourinary: , Vaginal bleeding -: Yes All other systems reviewed and negative Physical Exam - Vital signs Vitals: Temp Pulse Resp BP Pulse Ox 98.2 F 83 18 118/58 L 100 05/09/18 07:55 05/09/18 07:55 05/09/18 07:55 05/09/18 07:55 05/09/18 07:55 - Notes Notes: GENERAL_APPEARANCE: well_nourished, alert, cooperative VITALS: reviewed, see vital signs table. HEAD: no_swelling\tenderness on the head. EYES: PERRL, EOMI, conjunctiva_clear. NOSE: no_nasal_discharge. MOUTH: (-)decreased moisture. THROAT: no_tonsilar_inflammation, no_airway_obstruction. no_lymphadenopathy NECK: supple, no_neck_tenderness, (-)thyromegaly. BACK: no_back_tenderness. CHEST_WALL: no_chest_tenderness. LUNGS: no_wheezing, no_rales, no_rhonchi, (-)accessory muscle use, good air exchange bilateral. HEART: normal_rate, normal_rhythm, normal_S1, normal_S2, (-)S3, (-)S4, no_mur mur, no_rub. ABDOMEN: normal_BS, soft, no_abd_tenderness, (-)guarding, (-)rebound, no_organomegaly, no_abd_masses. EXTREMITIES: good pulses in all_extremities, no_swelling\tenderness in the extremities, no_edema. SKIN: warm, dry, good_color, no_rash. MENTAL_STATUS: speech_clear, oriented_X_3, flat affect, responds_appropriately to questions. NEURO: Neg Motor or Sensory Deficits on exam, CN 2-12 intact, DTR 2+ symmetric x 4, No cerbellar signs PSYCH: Patient denies suicidal or homicidal ideation denies visual or auditory hallucinations. Patient is feeling depressed but denies any suicidal gestures. Course - Re-evaluation Re-evalutation: 05/09/18 07:56 Patient was brought in for heroin overdose. EMS told her they would IVC her if she did not come in. The patient wanted to go home but I was able to sit and talk with her. She says she was anemic after having her baby. She had a stillborn child. She is having a lot of trouble in her life her was arrested. She lost where she lives. She is been bouncing around for places to stay. She has started doing heroin again she has done heroin in past. She stated she did not do this for suicidal gesture anything sort she was shooting heroin and it must of been stronger than she realized. Patient is agreeable to staying and being observed for several hours. I will recheck her blood work. Gave her some Zofran for nausea due to the Narcan. She seems to be doing quite well. We will give her some resources for outpatient detox she declines any d etox. 05/09/18 11:59 Patient has been observed for several hours and is doing well she has not needed any repeat Narcan. She does have a small UTI will give her those for antibiotics and will discharge her home she did not want any detox or psychiatric services at this time. - Vital Signs Vital signs: Temp Pulse Resp BP Pulse Ox 98.2 F 73 16 111/69 100 05/09/18 07:55 05/09/18 10:04 05/09/18 10:04 05/09/18 10:04 05/09/18 10:04 - Laboratory Result Diagrams: 05/09/18 08:10 05/09/18 08:10 Laboratory results interpreted by me: 05/09/18 05/09/18 05/09/18 08:10 08:10 11:09 RBC 3.48 L Hgb 10.0 L Hct 29.7 L RDW 15.0 H Est GFR (Non-Af Amer) 59 L Urine Protein 100 H Urine Ketones 20 H Urine Nitrite POSITIVE H Ur Leukocyte Esterase LARGE H Acetaminophen < 10 L Discharge - Discharge Clinical Impression: Accidental heroin overdose Qualifiers: Encounter type: initial encounter Qualified Code(s): T40.1X1A - Poisoning by heroin, accidental (unintentional), initial encounter Condition: Good Disposition: HOME, SELF-CARE Instructions: Instructions for Home Care Following a Drug Overdose ([facility]), Overdose ([facility]) Prescriptions: Nitrofurantoin/Nitrofuran Mac [Macrobid 100 mg Capsule] 1 tab PO BID #20 capsule
[2018-05-09] MEDS ORDERED: ONDANSETRON 4 MG TAB.RAPDIS PO ONE (08:21)
[2018-05-09 08:22] LABS: ABSOLUTE EOSINOPHILS # (AUTO) 0.1 10^3/uL (0.0-0.6); ABSOLUTE LYMPHOCYTES (AUTO) 1.4 10^3/uL (0.5-4.7); ABSOLUTE MONOCYTES (AUTO) 0.5 10^3/uL (0.1-1.4); ABSOLUTE NEUT (AUTO) 5.4 10^3/uL (1.7-8.2); BASOPHILS % (AUTO) 0.5 % (0-2); EOSINOPHILS % (AUTO) 1.3 % (0-6); HEMATOCRIT 29.7 % (36.0-47.0); LYMPHOCYTES % (AUTO) 18.7 % (13-45); MEAN CORPUSCULAR HEMOGLOBIN 28.9 pg (27.0-33.4); MEAN CORPUSCULAR HGB CONC 33.9 g/dL (32.0-36.0); MEAN CORPUSCULAR VOLUME 85 fl (80-97); PLATELET COUNT 367 10^3/uL (150-450); RED BLOOD COUNT 3.48 10^6/uL (3.72-5.28); SEGMENTED NEUTROPHILS % (AUTO) 72.5 % (42-78); TOTAL CELLS COUNTED % (AUTO) 100 %; WHITE BLOOD COUNT 7.4 10^3/uL (4.0-10.5)
[2018-05-09 08:46] LABS: ANION GAP 7 (5-19); BLOOD UREA NITROGEN 14 mg/dL (7-20); CALCIUM 9.3 mg/dL (8.4-10.2); CARBON DIOXIDE 29 mmol/L (22-30); CHLORIDE 106 mmol/L (98-107); GLUCOSE 94 mg/dL (75-110); POTASSIUM 3.9 mmol/L (3.6-5.0); SODIUM 142.3 mmol/L (137-145)
[2018-05-09 08:54] LABS: ACETAMINOPHEN < 10 ug/mL (10-30); ALCOHOL < 10 mg/dL (NONE DETECTED)
[2018-05-09 11:43] LABS: AMORPHOUS SEDIMENT,URINE TRACE /HPF; APPEARANCE,URINE TURBID; BILIRUBIN,URINE NEGATIVE (NEGATIVE); CALCIUM OXALATE CRYSTALS,URINE MANY /HPF; COLOR,URINE AMBER; GLUCOSE, URINE NEGATIVE (NEGATIVE); KETONES,URINE 20 mg/dL (NEGATIVE); LEUKOCYTE ESTERASE,URINE LARGE (NEGATIVE); NITRITE,URINE POSITIVE (NEGATIVE); PROTEIN,URINE 100 mg/dL (NEGATIVE); URINE SPECIFIC GRAVITY 1.019; UROBILINOGEN,URINE NEGATIVE mg/dL (<2.0)
[2018-05-09 11:55] LABS: URINE BARBITURATES SCREEN NEGATIVE; URINE BENZODIAZEPINES SCREEN NEGATIVE; URINE COCAINE SCREEN NEGATIVE; URINE MARIJUANA (THC) SCREEN NEGATIVE; URINE METHADONE SCREEN NEGATIVE; URINE PHENCYCLIDINE SCREEN NEGATIVE
[2018-05-09] MEDS ORDERED: NITROFURANTOIN MONOHYD/M-CRYST 100 MG CAPSULE PO ONE (11:59)
[2018-05-09 12:27] VITALS: BP 111/64
== END 2018-05-09 12:29 | disposition home or self-care (01) ==
LOC: ER 07:42
DX: T40.1X1A Poisoning by heroin, accidental (unintentional), initial encounter (principal); N39.0 Urinary tract infection, site not specified; J44.9 Chronic obstructive pulmonary disease, unspecified; X58.XXXA Exposure to other specified factors, initial encounter; Z59.0 Homelessness
CPT/HCPCS: 99284; 36415; 80307 ×3; 85025; 81025; 80048; 81001; S0119; J3490; J8499

== ENCOUNTER 2018-07-24 04:36 | Emergency (ER) | payer SELFPAY ==
[2018-07-24 04:49] VITALS: BP 118/71
--- NOTE | 2018-07-24 06:47 | ER Document Report ---
ED General - General Chief Complaint: Abscess Stated Complaint: LUMP UNDER ARM Time Seen by Provider: 07/24/18 06:40 TRAVEL OUTSIDE OF THE [place] IN LAST 30 DAYS: No - HPI Notes: Patient presents emergency department for evaluation of redness in her axillary region. She states she noticed a bump when she shaved over it 2 days ago. She states her boyfriend "got something out of there." She is unable to describe it further for me. She denies any fevers or chills. No nausea or vomiting. Of note she did have a stillborn child in April. She states that over the last 2 weeks she has noticed discharge from her breast that is similar to . She denies any headaches. No visual changes. - Related Data Allergies/Adverse Reactions: bupropion [From Wellbutrin] Allergy (Verified 04/21/18 11:40) Past Medical History - General Information source: Patient - Social History Smoking Status: Current Every Day Smoker Drug Abuse: Prescription drugs Family History: Reviewed & Not Pertinent - Past Medical History Cardiac Medical History: Denies: Hx Coronary Artery Disease Pulmonary Medical History: Reports: Hx Asthma, Hx COPD Neurological Medical History: Reports: Hx Seizures Renal/ Medical History: Denies: Hx Peritoneal Dialysis GI Medical History: Reports: Hx Hepatitis - Hepatitis C Infectious Medical History: Reports: Hx Hepatitis - Hepatitis C Review of Systems - Review of Systems Constitutional: No symptoms reported EENT: No symptoms reported Cardiovascular: No symptoms reported Respiratory: No symptoms reported Gastrointestinal: No symptoms reported Female Genitourinary: See HPI Musculoskeletal: No symptoms reported Skin: No symptoms reported Neurological/Psychological: No symptoms reported Physical Exam - Vital signs Vitals: Temp Pulse Resp BP Pulse Ox 97.8 F 85 18 118/71 100 07/24/18 04:42 07/24/18 04:42 07/24/18 04:42 07/24/18 04:42 07/24/18 04:42 Interpretation: Normal - Notes Notes: Vital signs reviewed, please refer to chart. Patient is normocephalic, atraumatic. Pupils equal round, reactive to light. Neck is supple without meningismus. Heart is regular rate and rhythm. Lungs are clear to auscultation bilaterally. Examination of the right axilla reveals a 4 x 3 cm area of induration with a 5 x 7 area of erythema. Abdomen is soft, nontender, normoactive bowel sounds throughout. Extremities without cyanosis, clubbing, edema. Peripheral pulses are equal. Skin is warm and dry. Patient is awake, alert, neurological exam is nonfocal. Course - Re-evaluation Re-evalutation: 07/24/18 07:57 Patient presents emergency department for evaluation. Her findings on her right axilla are most consistent with a cellulitis. I explained this to the patient, and we will treat her as such. I did however explained to her that there is a very small risk of an inflammatory breast cancer presenting in this way. I strongly suggested she follow-up with gynecology. She is already concerned about the possibility of status post her stillbirth in April. It seems to me that this would be late, but will defer to MANAGER OFFICE for their opinion. I explained to patient and her significant other the importance of follow-up and they voiced understanding. We will send her home with antibiotics and close follow-up. She is to return to the ED with worsening or new concerning symptoms of any sort. - Vital Signs Vital signs: Temp Pulse Resp BP Pulse Ox 97.8 F 85 18 118/71 100 07/24/18 04:42 07/24/18 04:42 07/24/18 04:42 07/24/18 04:42 07/24/18 04:42 Discharge - Discharge Clinical Impression: Cellulitis of right axilla Condition: Stable Disposition: HOME, SELF-CARE Instructions: Cellulitis ([facility]) Additional Instructions: Warm compresses to the area. Take antibiotics as prescribed until gone. Do not shave the area. You should follow-up with gynecology as previously discussed. Return to the emergency department with worsening or new concerning symptoms. Prescriptions: Doxycycline Hyclate 100 mg PO BID #14 capsule Ibuprofen [Motrin 800 mg Tablet] 800 mg PO Q8H PRN #30 tab PRN Reason:
== END 2018-07-24 06:53 | disposition home or self-care (01) ==
LOC: ER 04:36
DX: L03.111 Cellulitis of right axilla (principal); N64.52 Nipple discharge; F17.200 Nicotine dependence, unspecified, uncomplicated; F19.10 Other psychoactive substance abuse, uncomplicated; J44.9 Chronic obstructive pulmonary disease, unspecified; Z88.8 Allergy status to other drugs, medicaments and biological substances
CPT/HCPCS: 99282